=== PATIENT | female | born 1945 | race Caucasian/White ===

== ENCOUNTER 2021-12-30 09:36 | Emergency (ER) | payer MEDICARE ==
[2021-12-30] MEDS ORDERED: Sodium Chloride 0.9% 1000 ML 1,000 ML IV STA (09:50)
[2021-12-30] MEDS ORDERED: Sodium Chloride 0.9% 1000 ML 1,000 ML ONE (09:56)
[2021-12-30] MEDS ORDERED: PIPERACILLIN/TAZOBACTAM 4.5 GM in Sodium Chloride 100ML MINI-BAG PLUS 100 ML IV ONE (10:16)
[2021-12-30 10:22] LABS: Hematocrit 13.6 % (35-47); Mean Cell Volume 88.3 fL (78-100); Mean Corpuscular Hemoglobin 27.9 pg (26-32); Mean Corpuscular Hgb Concent. 31.6 g/dL (32-36); Mean Platelet Volume 10.2 fL (7.5-11.0); Red Blood Count 1.54 x10^6/uL (4.1-5.4); Red Cell Distribution Width 16.1 % (11.5-14.0)
[2021-12-30] MEDS ORDERED: DUONEB 0.5-3 MG/3 ml Neb IH ONE ×2 (10:23→10:29)
[2021-12-30 10:25] LABS: Hemoglobin 4.3 g/dL (12.0-16.0); White Blood Count 0.2 x10^3/uL (4.0-10.5)
[2021-12-30 10:26] LABS: Platelet Count 5 x10^3/uL (150-450)
[2021-12-30] MEDS ORDERED: PIPERACILLIN/TAZOBACTAM IV ONE ×2 (10:29→10:30)
[2021-12-30] MEDS ORDERED: Sodium Chloride 100ML MINI-BAG PLUS 100 ML IV ONE (10:30)
[2021-12-30] MEDS ORDERED: VANCOMYCIN 2 GRAM/400 ML BAG 2 GM/400 ML PIGGYBACK IV ONE ×2 (10:31→11:13)
--- NOTE | 2021-12-30 10:42 | ERPHSYRPT ---
- History of Present Illness Time Seen by Provider: 12/30/21 10:36 Source: patient, family, EMS Exam Limitations: clinical condition Patient Subjective Stated Complaint: Pt states that she hasn't been eating or drinking for the past couple of days and today she wouldn't really speak to them Triage Nursing Assessment: Pt brought to the ER by EMS, tachycardic, hypoxic and was placed on oxygen by EMS due to being in the 80's, finished last round of chemo 9 days ago, breast removed in August and son states that he thinks that it had spread to the lung and that is why they were doing chemo, pt is lethargic, answers some questions, skin is sallow and dry, wounds/dumont/sores/blisters to abdomen and right breast, started radiation on this past Friday Physician History: Pt states that she hasn't been eating or drinking for the past couple of days and today she wouldn't really speak to them Patient is 76-year-old female with significant past medical history of metastatic breast cancer with metastasized to the lungs recently undergoing mastectomy bilateral as well as radiation therapy and chemotherapy. Patient has not been feeling well for last 2 days and is getting more and more weak and lethargic so the son called an ambulance and patient was brought into the emergency room at [facility]. Patient is very weak, complaining of severe dry mouth, complaining of shortness of breath. Patient also has not been eating well for last 2 to 3 days. Timing/Duration: day(s) (2-3 days) Severity: severe Associated Symptoms: loss of appetite, malaise Allergies/Adverse Reactions: No Known Drug Allergies Allergy (Verified 12/30/21 10:12) Home Medications: Cetirizine HCl [Zyrtec] 10 mg PO DAILY 12/30/21 [History] Clopidogrel Bisulfate [PLAVIX Tablet] 75 mg PO DAILY 12/30/21 [History] Docusate Sodium 100 mg [Docusate Sodium 100 MG] 100 mg PO DAILY 12/30/21 [History] Gabapentin [Neurontin ] 1 ea TID 12/30/21 [History] Hydrocodone/Acetaminophen [Hydrocodone-Acetamin 2.5-325] 1 ea QID 12/30/21 [History] Metoprolol Succinate 25 mg Xl* [Toprol-Xl 25MG Tablets] 25 mg PO DAILY 12/30/21 [History] Morphine Sulfate [Morphine Sulfate ER] 80 mg PO BID 12/30/21 [History] Potassium Chloride [Klor-Con M20] 1 ea DAILY 12/30/21 [History] clonazePAM 1 mg TID 12/30/21 [History] Travel Risk - International Travel Have you traveled outside of the country in past 3 weeks: No - Coronavirus Screening Are you exhibiting any of the following symptoms?: No Close contact with a COVID-19 positive Pt in past 14-21 Days: No - Vaccine Status Have you recieved a Covid-19 vaccination: Yes 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 - Vaccination Dates Date of 2cond Vaccination (if applicable): 2020 - Review of Systems Constitutional: Fatigue, Weakness, No Fever, No Chills Eyes: No Symptoms Ears, Nose, & Throat: No Symptoms Respiratory: Cough, No Dyspnea Cardiac: No Chest Pain, No Edema, No Syncope Abdominal/Gastrointestinal: No Abdominal Pain, No Nausea, No Vomiting, No Diarrhea Genitourinary Symptoms: No Dysuria Musculoskeletal: No Back Pain, No Neck Pain Skin: No Rash Neurological: No Dizziness, No Focal Weakness, No Sensory Changes Psychological: No Symptoms Endocrine: No Symptoms All Other Systems: Reviewed and Negative - Past Medical History Pertinent Past Medical History: Yes Cardiac History: Myocardial Infarction ([place]) Other Medical History: breast cancer, hypoglycemic - Past Surgical History Past Surgical History: Yes Cardiac: Cardiac Stent Female Surgical History: Section, Mastectomy - Social History Smoking Status: Former smoker Exposure to second hand smoke: No Drug Use: none Patient Lives Alone: No - Nursing Vital Signs Nursing Vital Signs: Initial Vital Signs Temperature 98.9 F 12/30/21 09:38 Pulse Rate 113 H 12/30/21 09:38 Blood Pressure 106/56 12/30/21 09:38 O2 Sat by Pulse Oximetry 91 L 12/30/21 09:38 Pain Scale Pain Intensity 0 - Physical Exam General Appearance: moderate distress, alert Eye Exam: PERRL/EOMI, eyes nml inspection Ears, Nose, Throat Exam: normal ENT inspection, TMs normal, pharynx normal, moist mucous membranes Neck Exam: normal inspection, non-tender, supple, full range of motion Respiratory Exam: diminished breath sounds, crackles/rales, rhonchi, wheezing, No respiratory distress Cardiovascular Exam: regular rate/rhythm, normal heart sounds, normal peripheral pulses Gastrointestinal/Abdomen Exam: soft, normal bowel sounds, No tenderness, No mass Back Exam: normal inspection, normal range of motion, No CVA tenderness, No vertebral tenderness Extremity Exam: normal inspection, normal range of motion, pelvis stable Neurologic Exam: alert, oriented x 3, cooperative, normal mood/affect, nml cerebellar function, nml station & gait, sensation nml, No motor deficits Skin Exam: normal color, warm, dry, No rash Lymphatic Exam: No adenopathy SpO2: 95 - Course Nursing assessment & vital signs reviewed: Yes - Radiology Exams Chest X-ray Interpretation: Reviewed by me (left pleural effusion, infiltrates) Ordered Tests: Active Orders 24 hr Category Date Time Status 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 STAT Care 12/30/21 09:51 Active EKG-ER Only STAT Care 12/30/21 09:50 Active Oxygen-ED Only Nasal Cannula 2 lpm Care 12/30/21 09:50 Active CHEST 1 VIEW (PORTABLE) Stat Exams 12/30/21 10:08 Taken BLOOD CULTURE Stat Lab 12/30/21 10:15 Received CBC W DIFF Stat Lab 12/30/21 09:50 Completed CMP Stat Lab 12/30/21 10:10 Completed Manual Differential NC Stat Lab 12/30/21 09:50 Completed PROCALCITONIN Stat Lab 12/30/21 10:10 Completed UA W/RFX CULTURE Stat Lab 12/30/21 Ordered Respiratory Therapy Assessment DAILY RT 12/30/21 10:29 Active Medication Summary Generic Name Dose Route Start Last Admin Trade Name Freq PRN Reason Stop Dose Admin Vancomycin HCl 2 gm in 400 mls @ 133.333 mls/hr 12/30/21 10:31 12/30/21 11:19 Vancomycin 2 Gram/400 Ml Bag IV 12/30/21 13:30 133.333 mls/hr STAT ONE 133.33 mls/hr Administration Discontinued Medications Generic Name Dose Route Start Last Admin Trade Name Freq PRN Reason Stop Dose Admin Albuterol/Ipratropium Confirm 12/30/21 10:23 Ipratropium/Albuterol Sulfate 3 Ml Ampul.Neb Administered 12/30/21 10:24 Dose 3 ml IH .STK-MED ONE Albuterol/Ipratropium 3 ml 12/30/21 10:29 12/30/21 10:30 Ipratropium/Albuterol Sulfate 3 Ml Ampul.Neb IH 12/30/21 10:30 3 ml STAT ONE Administration Sodium Chloride 1,000 mls @ 999 mls/hr 12/30/21 09:50 12/30/21 11:12 Sodium Chloride 0.9% 1000 Ml IV 12/30/21 10:50 Infused .Q1H1M STA Infusion Sodium Chloride Confirm 12/30/21 09:56 Sodium Chloride 0.9% 1000 Ml Administered 12/30/21 09:57 Dose 1,000 mls @ ud .ROUTE .STK-MED ONE Piperacillin Sod/Tazobactam 100 mls @ 200 mls/hr 12/30/21 10:16 12/30/21 10:32 Sod 4.5 gm/ Sodium Chloride IV 12/30/21 10:45 200 mls/hr STAT ONE Administration Sodium Chloride Confirm 12/30/21 10:30 Sodium Chloride 100ml Mini-Bag Plus Administered 12/30/21 10:31 Dose 100 mls @ ud IV .STK-MED ONE Vancomycin HCl Confirm 12/30/21 11:13 Vancomycin 2 Gram/400 Ml Bag Administered 12/30/21 11:14 Dose 2 gm in 400 mls @ ud IV .STK-MED ONE Piperacillin Sod/Tazobactam Sod Confirm 12/30/21 10:29 Piperacillin/Tazobactam Sodium 4.5 Gm Vial Administered 12/30/21 10:30 Dose 4.5 gm IV .STK-MED ONE Piperacillin Sod/Tazobactam Sod Confirm 12/30/21 10:30 Piperacillin/Tazobactam Sodium 4.5 Gm Vial Administered 12/30/21 10:31 Dose 4.5 gm IV .STK-MED ONE Lab/Rad Data: Laboratory Result Diagrams 12/30/21 09:50 12/30/21 10:10 Laboratory Results 12/30/21 12/30/21 12/30/21 Range/Units 10:15 10:10 10:10 WBC (4.0-10.5) x10^3/uL RBC (4.1-5.4) x10^6/uL Hgb (12.0-16.0) g/dL Hct (35-47) % MCV (78-100) fL MCH (26-32) pg MCHC (32-36) g/dL RDW (11.5-14.0) % Plt Count (150-450) x10^3/uL MPV (7.5-11.0) fL Sodium 123 L (137-145) mmol/L Potassium 3.9 (3.5-5.1) mmol/L Chloride 90 L (98-107) mmol/L Carbon Dioxide 27 (22-30) mmol/L Anion Gap 9.3 (5-15) MEQ/L BUN 43 H (7-17) mg/dL Creatinine 1.16 H (0.52-1.04) mg/dL Estimated GFR 48.3 ML/MIN Glucose 126 H (74-106) mg/dL Calcium 7.0 L (8.4-10.2) mg/dL Total Bilirubin 0.80 (0.2-1.3) mg/dL AST 62 H (14-36) U/L ALT 28 (0-35) U/L Alkaline Phosphatase 120 (38-126) U/L Serum Total Protein 5.1 L (6.3-8.2) g/dL Albumin 2.4 L (3.5-5.0) g/dL Procalcitonin 4.210 H* (0.030-0.080) ng/mL Influenza Type A Ag NEGATIVE (NEGATIVE) Influenza Type B Ag NEGATIVE (NEGATIVE) RSV (PCR) NEGATIVE (Negative) SARS-CoV-2 (PCR) NEGATIVE (NEGATIVE) 12/30/21 Range/Units 09:50 WBC 0.2 L* (4.0-10.5) x10^3/uL RBC 1.54 L (4.1-5.4) x10^6/uL Hgb 4.3 L* (12.0-16.0) g/dL Hct 13.6 L (35-47) % MCV 88.3 (78-100) fL MCH 27.9 (26-32) pg MCHC 31.6 L (32-36) g/dL RDW 16.1 H (11.5-14.0) % Plt Count 5 L* (150-450) x10^3/uL MPV 10.2 (7.5-11.0) fL Sodium (137-145) mmol/L Potassium (3.5-5.1) mmol/L Chloride (98-107) mmol/L Carbon Dioxide (22-30) mmol/L Anion Gap (5-15) MEQ/L BUN (7-17) mg/dL Creatinine (0.52-1.04) mg/dL Estimated GFR ML/MIN Glucose (74-106) mg/dL Calcium (8.4-10.2) mg/dL Total Bilirubin (0.2-1.3) mg/dL AST (14-36) U/L ALT (0-35) U/L Alkaline Phosphatase (38-126) U/L Serum Total Protein (6.3-8.2) g/dL Albumin (3.5-5.0) g/dL Procalcitonin (0.030-0.080) ng/mL Influenza Type A Ag (NEGATIVE) Influenza Type B Ag (NEGATIVE) RSV (PCR) (Negative) SARS-CoV-2 (PCR) (NEGATIVE) - Progress Progress: unchanged Progress Note: 12/30/21 10:39 Patient hemoglobin is 4.3 platelet count is 4000 and total white count is only 200. Patient chest x-ray showing left pleural effusion. Considering patient metastatic cancer history and severely immunocompromised with severely anemic and leukopenic we will transfer patient to [facility]. Zosyn 3.5 g IV piggyback as well as vancomycin 1 g IV piggyback is given 3 units of blood type and crossmatch and ready for transfuse. Dr. Santo for who is her oncologist was contacted. Dr. Huitron was covering and he advised patient to be transferred to either [facility] or [facility]. Discussed with : Other Will see patient in: hospital (full admit) ([facility]) Counseled pt/family regarding: lab results, diagnosis, need for follow-up, rad results - Departure Departure Disposition: Transfer ([facility]) Clinical Impression: Pneumonia of left lower lobe due to Pseudomonas species, Pancytopenia due to antineoplastic chemotherapy Sepsis Qualifiers: Sepsis type: sepsis due to unspecified organism Sepsis acute organ dysfunction status: with acute organ dysfunction Severe sepsis acute organ dysfunction type: unspecified Severe sepsis shock status: without septic shock Qualified Code(s): A41.9 - Sepsis, unspecified organism Condition: Fair Critical Care Time: Yes Critical Care Time(excluding separately billable procedures): Critical 75-104 mins Referrals: YVES MELGOZA [Primary Care Provider] - Follow up/PCP as directed
[2021-12-30 10:57] LABS: INFLUENZA A NEGATIVE (NEGATIVE); INFLUENZA B NEGATIVE (NEGATIVE); RESPIRATORY SYNCTIAL VIRUS NEGATIVE (Negative); SARS-CoV-2 Xpert Express NEGATIVE (NEGATIVE)
[2021-12-30 11:04] LABS: ALBUMIN 2.4 g/dL (3.5-5.0); ANION GAP 9.3 MEQ/L (5-15); BILIRUBIN,TOTAL 0.8 mg/dL (0.2-1.3); Creatinine 1 1.16 mg/dL (0.52-1.04); EST GLOMERULAR FILTRATION RATE 48.3 ML/MIN; Potassium 3.9 mmol/L (3.5-5.1); Total Protein 5.1 g/dL (6.3-8.2)
[2021-12-30 12:26] LABS: ABO TYPING B; Antibody Screen NEGATIVE (NEGATIVE); RH TYPING POSITIVE
[2021-12-30 12:27] LABS: CROSS MATCH (PRBC) COMPATIBLE (COMPATIBLE)
[2021-12-30 12:38] VITALS: BP 100/54; PULSE 102; O2SAT 98
[2021-12-30 13:15] LABS: Eosinophil 1 % (0.00-3.0); Lymphocytes 59 % (24-44); Monocyte 13 % (0.0-12.0); Total Cells Counted 100
[2021-12-30 13:16] LABS: ANISOCYTOSIS 1+; Microcytosis 1+; Platelet Estimate DECREASED (NORMAL); Poikilocytosis 1+
--- NOTE | 2021-12-30 17:56 | XRAY ---
Indication: Confusion. Status post left thoracentesis December 12, 2021. Comparison: December 12, 2021 Portable chest demonstrates worsening moderate left mid to lower lung infiltrate/atelectasis/effusion. No pneumothorax. Remaining heart and right lung unremarkable again with incidental bilateral calcified granulomas and right Port-A-Cath.
== END 2021-12-30 13:15 | disposition short-term general hospital (02) ==
LOC: ED 09:36
DX: J15.1 Pneumonia due to Pseudomonas (principal); A41.9 Sepsis, unspecified organism; D61.810 Antineoplastic chemotherapy induced pancytopenia; C50.919 Malignant neoplasm of unspecified site of unspecified female breast; C78.00 Secondary malignant neoplasm of unspecified lung; R53.1 Weakness; R06.02 Shortness of breath; R63.0 Anorexia; Z79.891 Long term (current) use of opiate analgesic; Z79.899 Other long term (current) drug therapy
CPT/HCPCS: 0241U; 36000; 36415; 71045; 80053; 84145; 85025; 86850; 86900; 86901; 86922; 87040; 93005; 93041; 94640; 96360; 99284; 99291; 99292; 87077; 87186; 96365; 96367; J2543; A9270-GY; J3370